=== PATIENT | female | born 1925 | race Caucasian/White ===

== ENCOUNTER → 2016-12-13 | Outpatient (CLI) | payer MEDICARE, BC ==
[~2016-12-13] MED LIST: ACIPHEX 20 MG T20 MG OR; ASPIRIN 81MG TA81 MG PO; ATENOLOL25 M1 PO; ATENOLOL25 MG PO; CHEWABLE ASPIRI81 MG PO; CHLORDIAZEPOXID10 M1 PO; ENALAPRIL5 MG PO; KCL 10% 2020 MEQ/15 PO; LIBRIUM 10MG. C10 MG PO; OMEGA 31000 MG PO; PREMARIN 0.3MG0.3 MG PO; PREMARIN0.3 MG PO; VASOTEC2.5 MG PO; VIT B-6100 MG PO; VITAMIN C PURE500 MG PO; VITAMIN D3400 IU PO; VITAMIN E200 I1 PO
[2016-12-13 18:54] LABS: BUN 13 mg/dL (7-18)
[2016-12-13 18:55] LABS: GFR (ESTIMATED) 59 ML/MIN (59-)
== END ==
LOC: LAB 16:19
PROVIDERS: Internal Medicine
DX: E11.51 Type 2 diabetes mellitus with diabetic peripheral angiopathy without gangrene (principal); I48.0 Paroxysmal atrial fibrillation; I69.320 Aphasia following cerebral infarction; I25.10 Atherosclerotic heart disease of native coronary artery without angina pectoris; I10 Essential (primary) hypertension; M15.0 Primary generalized (osteo)arthritis

== ENCOUNTER 2016-12-28 10:54 | Observation (INO) | payer MEDICARE, BC ==
[~2016-12-28] VITALS: Ht 165.1 cm; Wt 68.5 kg
[2016-12-28 11:05] VITALS: BP 131/66
--- OUTSIDE RECORDS SUMMARY | 2016-12-28 11:06 | External Medical Summary Rpt ---
Author Author [employer], ALINAM[employer]HELL [employer] Organization [employer] Address Unknown Phone Unavailable Results INR in Blood by Coagulation assay Observa Value Referen Units Interpr Notes Date tion ce etation Range INR in 0.9 - 1.1 No High INDICATIO December 26 Blood by informati N 2017 Coagulati on in on assay source INR data RANGETHER APY FOR DVT, PE, ATRIAL FIB; 2.0 - 3.0PROPHY LAXIS FOR VTETHERAP Y FOR MECHANICA L HEART 2.5 - 3.5VALVE; PREVENTIO N OF SYSTEMICE MBOLISM SECONDARY TO AMI Prothromb 9.4 - SECONDS High No December 26 in time 11.8 inform2016 (PT) in on in Platelet source poor data plasma by Coagulati on assay CBC W Auto Differential panel in Blood Observa Value Referen Units Interpr Notes Date tion ce etation Range Basophils 0 - 0.2 K/MM3 Normal No December 262016 [#/volume on in ] in source Blood by data Automated count Basophils 0.1 - 2.0 % Normal No December 26 / inform2016 leukocyte on in s in source Blood by data Automated count Eosinophi 0.0 - 0.4 K/mm3 Normal No December 26 ls inform2016 [#/volume on in ] in source Blood by data Automated count Eosinophi 0.1 - % Normal No December 26 ls/100 12.0 informati 2016 leukocyte on in s in source Blood by data Automated count Granulocy 1.8 - 7.8 K/mm3 Normal No December 26 kulwinder informati 2016 [#/volume on in ] in source Blood by data Automated count Granulocy 37.0 - % Normal No December 26 kulwinder/100 80.0 informati 2016 leukocyte on in s in source Blood by data Automated count Hematocri 37.0 - % Normal No December 26 t [Volume 47.0 informati 2016 on in Fraction] source of Blood data Hemoglobi 12.2 - g/dL No No December 26 n 16.2 informati informati 2016 [Mass/vol on in on in ume] in source source Blood data data Lymphocyt 0.7 - 4.5 K/mm3 Normal No December 26 es inform2016 [#/volume on in ] in source Unspecifi data ed specimen by Automated count Lymphocyt 10 - 50.0 % Normal No December 26 es inform2016 [#/volume on in ] in source Unspecifi data ed specimen by Automated count Erythrocy 27 - 31.2 pg Normal No December 26 te mean 2016 corpuscul on in ar source hemoglobi data n [Entitic mass] Erythrocy 31.8 - g/dl Normal No December 26 te mean 35.4 2016 corpuscul on in ar source hemoglobi data n concentra tion [Mass/vol ume] by Automated count Erythrocy 82.2 - fl Normal No December 26 te mean 97.8 2016 corpuscul on in ar volume source [Entitic data volume] by Automated count Monocytes 0.1 - 1.0 K/mm3 Normal No December 262016 [#/volume on in ] in source Blood by data Automated count Monocytes 1.7 - 9.3 % Normal No December 26 /100 2016 leukocyte on in s in source Blood by data Automated count Platelet 7.4 - fl Low No December 26 mean 10.4 2016 volume on in [Entitic source volume] data in Blood by Automated count Platelets 142 - 424 K/mm3 Normal No December 262016 [#/volume on in ] in source Blood data Erythrocy 4.2 - 5.4 M/mm3 Normal No December 26 kulwinder 2016 [#/volume on in ] in source Amniotic data fluid Erythrocy 11.5 - % Normal No December 26 te 17.5 2016 distribut on in ion width source [Entitic data volume] by Automated count Leukocyte 4.8 - K/MM3 Normal No December 26 s 10.8 informati 2016 [#/volume on in ] in source Blood data INR in Blood by Coagulation assay Observa Value Referen Units Interpr Notes Date tion ce etation Range INR in 0.9 - 1.1 No High INDICATIO December 19 Blood by informati N 2017 Coagulati on in 10:28 AM on assay source INR data RANGETHER APY FOR DVT, PE, ATRIAL FIB; 2.0 - 3.0PROPHY LAXIS FOR VTETHERAP Y FOR MECHANICA L HEART 2.5 - 3.5VALVE; PREVENTIO N OF SYSTEMICE MBOLISM SECONDARY TO AMI Prothromb 9.4 - SECONDS High No December 19 in time 11.8 informati 2016 (PT) in on in 10:28 AM Platelet source poor data plasma by Coagulati on assay Comprehensive metabolic 2000 panel in Serum or Plasma Observa Value Referen Units Interpr Notes Date tion ce etation Range Albumin/G 1.1 - 1.8 No Normal No December 13 lobulin informati informati 2016 4:00 [Mass on in on in PM ratio] in source source Serum or data data Plasma Albumin 3.4 - 5.0 gm/dL Normal No December 13 [Mass/vol informati 2016 4:00 ume] in on in PM Serum or source Plasma data Alkaline 46 - 116 U/L Normal No December 13 phosphata informati 2016 4:00 se on in PM [Enzymati source c data activity/ volume] in Serum or Plasma Bilirubin 0.2 - 1.0 mg/dL Normal No December 13 .total informati 2016 4:00 [Mass/vol on in PM ume] in source Serum or data Plasma Urea 7 - 18 mg/dL Normal No December 13 nitrogen informati 2016 4:00 [Mass/vol on in PM ume] in source Serum or data Plasma Calcium 8.5 - mg/dL Normal No December 13 [Mass/vol 10.1 informati 2016 4:00 ume] in on in PM Serum or source Plasma data Chloride 98 - 107 mmoL/L Normal No December 13 [Moles/vo informati 2016 4:00 lume] in on in PM Serum or source Plasma data Carbon 21.0 - mmoL/L Normal No December 13 dioxide, 32.0 informati 2016 4:00 total on in PM [Moles/vo source lume] in data Serum or Plasma Creatinin 0.55 - mg/dL Normal No December 13 e 1.02 informati 2016 4:00 [Mass/vol on in PM ume] in source Serum or data Plasma Estimated 59- ML/MIN No REFERENCE December 13 informati RANGE: 2017 4:00 glomerula on in >60 PM r source ML/MIN/1. filtratio data 73 SQUARE n rate METERSIf (GF this patient is -A merican, then multiply theresult by 1.210. Globulin 1.3 - 3.2 gm/dL High No December 13 [Mass/vol informati 2016 4:00 ume] in on in PM Serum source data Glucose 74 - 106 mg/dL Normal No December 13 [Mass/vol informati 2016 4:00 ume] in on in PM Serum or source Plasma data Potassium 3.5 - 5.1 mmoL/L Normal No December 132016 4:00 [Moles/vo on in PM lume] in source Serum or data Plasma Sodium 136 - 145 mmoL/L Low No December 13 [Moles/vo informati 2016 4:00 lume] in on in PM Serum or source Plasma data Aspartate 15 - 37 U/L Normal No December 132016 4:00 aminotran on in PM sferase source [Enzymati data c activity/ volume] in Serum or Plasma Alanine 12 - 78 U/L Normal No December 13 aminotran 2016 4:00 sferase on in PM [Enzymati source c data activity/ volume] in Serum or Plasma Protein 6.4 - 8.2 gm/dL Normal No December 13 [Mass/vol informati 2016 4:00 ume] in on in PM Serum or source Plasma data Lipid 1996 panel in Serum or Plasma Observa Value Referen Units Interpr Notes Date tion ce etation Range Cholester < 200 mg/dL No No December 13 ol informati informati 2016 4:00 [Moles/vo on in on in PM lume] in source source Unspecifi data data ed specimen Cholester 40 - 60 MG/DL Normal No December 13 ol in HDL informati 2016 4:00 on in PM [Mass/vol source ume] in data Serum or Plasma Cholester 0 - 130 mg/dL Normal No December 13 ol in LDL 2016 4:00 on in PM [Mass/vol source ume] in data Serum or Plasma by calculati on Triglycer 30 - 200 mg/dL Normal No December 13 gladys ati 2016 4:00 [Moles/vo on in PM lume] in source Serum or data Plasma Cholester 0 - 40 No Normal No December 13 ol in informati informati 2016 4:00 VLDL on in on in PM [Mass/vol source source ume] in data data Serum or Plasma Hemoglobin A1c in Blood Observa Value Referen Units Interpr Notes Date tion ce etation Range Hemoglo 5.5 0.0 - % Normal < 6% December 13 bin A1c 7.0 NON-AUSTIN 2017 in BETIC 4:00 PM Blood LEVEL< 7% CONTROL LED DIABETI C LEVEL> 8% POORLY CONTROL LED DIABETI C LEVEL INR in Blood by Coagulation assay Observa Value Referen Units Interpr Notes Date tion ce etation Range INR in 0.9 - 1.1 No High December 13 Blood by informati NOTIFICAT 2016 4:00 Coagulati on in ION PM on assay source RESULT data Martha neINDICAT ION INR RANGETHER APY FOR DVT, PE, ATRIAL FIB; 2.0 - 3.0PROPHY LAXIS FOR VTETHERAP Y FOR MECHANICA L HEART 2.5 - 3.5VALVE; PREVENTIO N OF SYSTEMICE MBOLISM SECONDARY TO AMI Prothromb 9.4 - SECONDS High December 13 in time 11.8 NOTIFICAT 2016 4:00 (PT) in ION PM Platelet RESULT poor Martha plasma by rosalind Coagulshira on assay
--- OUTSIDE RECORDS SUMMARY | 2016-12-28 11:06 | External Medical Summary Rpt ---
Author Author [employer] Organization [employer] Address Unknown Phone Unavailable Purpose Continuity of Care Document - through 2016
--- OUTSIDE RECORDS SUMMARY | 2016-12-28 11:06 | External Medical Summary Rpt ---
Demographics Preferred Language Maori Marital Status Unknown Congregation Affiliation Unknown Race Unknown Ethnic Group Unknown Author Author , Organization [employer] Address Unknown Phone Unavailable Purpose Continuity of Care Document - through 2016 Immunization No patient found.
--- OUTSIDE RECORDS SUMMARY | 2016-12-28 11:06 | External Medical Summary Rpt ---
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
--- OUTSIDE RECORDS SUMMARY | 2016-12-28 11:06 | External Medical Summary Rpt ---
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
--- OUTSIDE RECORDS SUMMARY | 2016-12-28 11:06 | External Medical Summary Rpt ---
Author Author [employer], ALINAMITCHELL Production Organization [employer] Address [...]
--- OUTSIDE RECORDS SUMMARY | 2016-12-28 11:06 | External Medical Summary Rpt ---
Demographics Preferred Language Bengali Marital Status Unknown Presybeterian Affiliation Unknown Race Unknown Ethnic Group Unknown Author Author , Organization [employer] Address Unknown Phone Unavailable Purpose Continuity of Care Document - through 2016 Immunization No patient found.
[2016-12-28 11:33] LABS: URINE BILIRUBIN - DIPSTICK NEGATIVE (NEG); URINE BLOOD 1+ (NEG)
[2016-12-28] MEDS ORDERED: WARFARIN SODIUM3 MG PO (12:02)
--- NOTE | 2016-12-28 12:02 | Emergency Room Report ---
History of Present Illness Time Seen by 1104 Presenting Problem in Triage Pt arrived:Wheelchair Presenting Problem:PT REPORTS LOWER BACK PAIN X1 WEEK. PT REPORTS HAS BEEN SEEN BY PCP HAD BLOOD WORK AND XRAYS. NO KNOWN INJURY. 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 N Clinical Suspician of Infection? N Mental Status: 1 - Regular (Normal Baseline) Sepsis Risk:Low Sepsis Risk Have you (or family members/close friends) recently traveled outside the [place]? N If Yes, where/when: Have you had exposure to infectious disease within the past month? N TB? Other? Specify: Comment History obtained primarily from the patient's nephew. She lives alone but he checks on her frequently. He says she has been declining for about a week and a half. She is generally weak and also complains of back pain. Today she also complains that she hurts all over. He says that he could barely get her up to walk today because of general weakness. Eventually she was able to get up and walk with a walker but it was quite difficult to get her into the car to bring her here. Nephew says urine smells bad. She saw her primary care physician for her back pain and 2 days ago had x-rays and a complete blood count and a ProTime. X-ray showed degenerative changes of the lumbar spine with grade 1 anterolisthesis of L4 on L5. Facet arthritic change. Concave deformity of the inferior endplate of L2 consistent with mild compressive changes age indeterminate. Old wedge compression changes of T12. She denies fever, cough, chest pain, shortness of breath, urinary symptoms, vomiting. She has had constipation. She has been eating and drinking. ALLERGIES Coded Allergies: Cephalosporins (12/28/16) Penicillins (12/28/16) Sulfa (Sulfonamide Antibiotics) (12/28/16) aspirin (12/28/16) cefaclor (12/28/16) clindamycin (12/28/16) metronidazole (12/28/16) Home Medications Reported Medications Enalapril Maleate 5 MG PO BID Atenolol 25 MG PO BID Warfarin Sodium (Warfarin 3MG) 3 MG PO DAILY #60 Simvastatin 10 MG PO DAILY #30 RANITIDINE HCL (Ranitidine HCl) 150 MG PO DAILY #30 History Medical History General CAD? No Angina: Yes TN: Yes Hypertension? Yes Hyperlipidemia? Yes CHF? No COPD? No Asthma? No Hernia? Yes Thyroid Problems? No Hypothyroidism? No CVA? Yes Seizures? No Diabetes? Yes Insulin Dependent: No Insulin Pump: No Home FSBS? No UTI? Yes Stones? No GB Disease: Yes Hepatitis? No Cataracts? No Glaucoma? No MRSA? No TB? No Anxiety? Yes Cancer? No More? No Immunization Hx DT/Tetanus 5-10 YRS Flu LAST YEAR Pneumonia > 10 YRS Surgical Hx Previous Surgery?Y GALLBLADDER STOMACH TUMORS REMOVAL KIDNEY TUBE OPENINGS FINGER SURGERY D & C BREAST LUMP REMOVAL RIGHT KNEE MENISCUS HYSTERECTOMY BLADDER SURGERY Family History Family Hx Diabetes Yes CAD Yes Hypertension Yes Hyperlipidemia Yes Cancer Yes TB No Social History Smoking Hx Smoker: Never Smoker Tobacco: No Alcohol Alcohol: No Review of Systems All Other Systems Reviewed and Negative Constitutional denies fever, weakness Respiratory denies cough, denies shortness of breath Cardiovascular denies chest pain Gastrointestinal denies abdominal pain, constipation, denies diarrhea, denies nausea, denies vomiting Genitourinary see HPI. Musculoskeletal back pain Physical Exam Vital Signs Vital Signs Date Time Temp Pulse Resp B/P Pulse O2 O2 Flow FiO2 Ox Delivery Rate 12/28 1307 69 20 129/67 96 12/28 1105 97.0 62 20 131/66 98 General Appearance no apparent distress, elderly and frail, sitting in wheelchair Eye Exam - bilateral eye normal exam, bilateral eye PERRL, bilateral eye EOMI Ear, Nose, Throat hearing grossly normal, normal ENT inspection Neck normal inspection, non-tender, supple, full range of motion Respiratory Status Yes: trachea midline, chest symmetrical, non tender chest. No: respiratory distress. Lung Sounds bilateral: normal breath sounds, lungs clear. Cardiovascular normal exam, regular rate/rhythm, no peripheral edema, no gallop, no JVD, no murmur, no rub, normal peripheral pulses Peripheral Pulses Pulses normal Yes Gastrointestinal normal bowel sounds, normal exam, non tender, soft, no organomegaly Back thoracic kyphosis. Tender lumbar spine, mild. 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 No Results/Orders Laboratory Tests 12/28/16 1250: Sodium 130 L, Potassium 3.8, Chloride 95 L, Carbon Dioxide 29, BUN 15, Creatinine 0.8, Estimated Creat Clear 52, Estimated GFR (MDRD) 68, Glucose 110 H, Calcium 9.5, Total Bilirubin 0.6, AST 23, ALT 25, Alkaline Phosphatase 89, Creatine Kinase 157, CK-MB (CK-2) Rel Index 1.1, CK and CKMB Interp 1.8, Troponin I < 0.02, Total Protein 8.0, Albumin 3.9, Globulin 4.1 H, Albumin/ Globulin Ratio 1.0 L, WBC 7.8, RBC 4.64, Hgb 13.5, Hct 41.2, MCV 88.7, RDW 12.6 , Plt Count 325, MPV 6.1 L, Gran % 56.2, Gran # 4.4, Lymphocytes % 36.2, Monocytes % 7.1, Eosinophils % 0.4, Basophils % 0.2, Lymphocytes # 2.8, Monocytes # 0.6, Eosinophils # 0.0, Basophils # 0.0, PUBS MCHC 32.8, MCH 29.1 12/28/16 1130: Urine Color YELLOW, Urine Appearance CLOUDY, Urine pH 8.0, Ur Specific [place] 1.010, Urine Protein TRACE H, Urine Ketones NEGATIVE, Urine Blood 1+ H, Urine Nitrate NEGATIVE, Urine Bilirubin NEGATIVE, Urine Urobilinogen 0.2, Ur Leukocyte Esterase 1+ H, Urine RBC 3-5, Urine WBC 5-10, Ur Squamous Epith Cells 3-5, Amorphous Sediment 1+, Urine Bacteria 4+, Hyaline Casts 3-5, Urine Glucose NEGATIVE Current Medication Orders Sig/Sourav Start time Last Medication Dose Route Stop Time Status Admin Levofloxacin/Dextrose 100 ML ONCE ONE 12/28 1415 r IV 12/28 1514 Sodium Chloride 10 ML PRN PRN 12/28 1215 AC IV 12/29 1215 Orders Procedure Date/time Status Decision to admit 12/28 1414 Active ELECTROCARDIOGRAM REQUEST 12/28 1216 Active IV SALINE LOCK 12/28 121 Active CBC WITH AUTO DIFF 12/28 1216 Complete CARDIAC ENZYMES 12/28 1216 Complete CHEM 12 PROFILE 12/28 1216 Complete CULTURE, URINE 12/28 1130 Active URINALYSIS/COMPLETE 12/28 1112 Complete 12 LEAD EKG-PHIL (INITIAL) 12/28 UNK Active CM/EKG CM/EKG Comments EKG interpreted by Allen Jalloh MD: Rhythm: sinus Rate: 63 [place]: normal Ectopy: none Conduction: normal ST Segment Changes: none T Wave Changes: none Q Waves: none No evidence of acute ischemia or injury Baseline artifact present, but I consider the EKG adequate for accurate interpretation. Low-voltage QRS XRAY/CT/US XRAY/CT/US XRAY chest Comment X-ray interpreted by radiologist: No change with no acute finding Progress - 2:10 PM: I have discussed the case with Annika for Dr. Clark who agrees to admit the patient to the hospital. We discussed the patient's clinical information, including history, exam, laboratory and radiology results and ED course. Per hospital procedure, I will write temporary bridge inpatient orders on the patient. Specific orders requested by the admitting physician: Levaquin Departure Departure Disposition Still a Patient Clinical Impression Primary Impression: Generalized weakness Secondary Impressions: Lumbar compression fracture Qualifiers: Encounter type: initial encounter Fracture type: closed Qualified Code: S32.000A - Wedge compression fracture of unspecified lumbar vertebra, initial encounter for closed fracture Urinary tract infection Qualifiers: Urinary tract infection type: site unspecified Hematuria presence: with hematuria Qualified Code: N39.0 - Urinary tract infection, site not specified Condition STABLE Referrals Jesus DURAN,Paulino Hurtado (Family) ED Critical Care Critical Care No at [id number]
[2016-12-28] MEDS ORDERED: SIMVASTATIN10 MG PO (12:03)
[2016-12-28] MEDS ORDERED: RANITIDINE 150150 MG PO (12:03)
[2016-12-28 13:04] LABS: HEMOGLOBIN 13.5 g/dL (12.2-16.2); LYMPH # 2.8 K/mm3 (0.7-4.5); LYMPH % 36.2 % (10-50.0)
--- NOTE | 2016-12-28 13:07 | RADIOLOGY REPORT PS360 ---
CHEST-PORTABLE HISTORY: weak ORDERING PHYSICIAN: Allen Jalloh MD PATIENT AGE: 89 years COMPARISON: 12/20/2011 FINDINGS: The cardiomediastinal silhouette and pulmonary vascularity are within normal limits. The lungs are clear without infiltrates, suspicious nodules, or pleural effusions. No acute bony abnormalities. IMPRESSION: No change with no acute finding
[2016-12-28 13:23] LABS: BUN 15 mg/dL (7-18)
[2016-12-28 13:34] LABS: GFR (ESTIMATED) 68 ML/MIN (59-)
--- OUTSIDE RECORDS SUMMARY | 2016-12-28 14:21 | External Medical Summary Rpt ---
Demographics Preferred Language Hebrew Marital Status Unknown Orthodox Affiliation Unknown Race Unknown Ethnic Group Unknown Author Author , Organization [employer] Address Unknown Phone Unavailable Purpose Continuity of Care Document - through 2016 Immunization No patient found.
--- OUTSIDE RECORDS SUMMARY | 2016-12-28 14:21 | External Medical Summary Rpt ---
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 NTS Results Labs Lab Lab Date Result Refere Interp Status Commen Order Detail nces retati t Range on Urinalysis dipstick W Reflex Microscopic panel in Urine (12-28-2016 11:30) Amorpho 1+ NONE complet us 017 ed sedimen 11:30 t [Presen ce] in Urine sedimen t by Light microsc opy Bacteri 4+ O complet a 017 ed [Presen 11:30 ce] in Urine sedimen t by Light microsc opy Hyaline 3-5 NONE complet casts 017 ed [Presen 11:30 ce] in Urine sedimen t by Light microsc opy Erythro 3-5 0 complet cytes 017 ed [Presen 11:30 ce] in Urine sedimen t by Light microsc opy Epithel 3-5 0#/hp complet ial 017 f - ed cells.s 11:30 5#/hp quamous f [Presen ce] in Urine sedimen t by Microsc opy high power field Leukocy 5-10 O complet kulwinder 017 wbc/hpf ed [#/volu 11:30 me] in Urine Urinalysis dipstick W Reflex Microscopic panel in Urine (12-28-2016 11:30) Appeara CLOUDY CLEAR complet nce of 017 ed Urine 11:30 Bilirub NEGATIV NEG complet in 017 E ed [Presen 11:30 ce] in Urine by Test strip Erythro 1+ NEG Abnorma complet cytes 017 l ed [Presen 11:30 ce] in Urine Color YELLOW YELLOW complet of 017 ed Urine 11:30 Ketones NEGATIV NEG complet 017 E ed [Presen 11:30 ce] in Urine by Automat ed test strip Mucus 1+ NEG Abnorma complet [Presen 017 l ed ce] in 11:30 Urine sedimen t by Light microsc opy Nitrite NEGATIV NEG complet 017 E ed [Presen 11:30 ce] in Urine by Test strip Urobili 0.2 NEG complet nogen 017 ed [Presen 11:30 ce] in Urine by Test strip Hemoglobin A1c in Blood (12-13-2016 16:00) Hemoglo 5.5 % 0.0% Normal complet bin A1c 017 - ed in 16:00 7.0% Blood
--- OUTSIDE RECORDS SUMMARY | 2016-12-28 14:21 | External Medical Summary Rpt ---
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
--- OUTSIDE RECORDS SUMMARY | 2016-12-28 14:21 | External Medical Summary Rpt ---
Demographics Preferred Language Tamazight Marital Status Unknown Holiness Affiliation Unknown Race Unknown Ethnic Group Unknown Author Author , Organization [employer] Address Unknown Phone Unavailable Purpose Continuity of Care Document - through 2016 Immunization No patient found.
--- OUTSIDE RECORDS SUMMARY | 2016-12-28 14:22 | External Medical Summary Rpt ---
Author Author [employer], [employer] Organization [employer] Address Unknown Phone Unavailable Results CBC W Auto Differential panel in Blood Observa Value Referen Units Interpr Notes Date tion ce etation Range Basophils 0 - 0.2 K/MM3 Normal No Dec 28 informati 2016 [#/volume on in 12:50 PM ] in source Blood by data Automated count Basophils 0.1 - 2.0 % Normal No Dec 28 / informati 2016 leukocyte on in 12:50 PM s in source Blood by data Automated count Eosinophi 0.0 - 0.4 K/mm3 Normal No Dec 28 ls informati 2016 [#/volume on in 12:50 PM ] in source Blood by data Automated count Eosinophi 0.1 - % Normal No Dec 28 ls/100 12.0 inform2016 leukocyte on in 12:50 PM s in source Blood by data Automated count Granulocy 1.8 - 7.8 K/mm3 Normal No Dec 28 kulwinder informati 2016 [#/volume on in 12:50 PM ] in source Blood by data Automated count Granulocy 37.0 - % Normal No Dec 28 kulwinder/100 80.0 inform2016 leukocyte on in 12:50 PM s in source Blood by data Automated count Hematocri 37.0 - % Normal No Dec 28 t [Volume 47.0 informati 2016 on in 12:50 PM Fraction] source of Blood data Hemoglobi 12.2 - g/dL Normal No Dec 28 n 16.2 informati 2016 [Mass/vol on in 12:50 PM ume] in source Blood data Lymphocyt 0.7 - 4.5 K/mm3 Normal No Dec 28 es informati 2016 [#/volume on in 12:50 PM ] in source Unspecifi data ed specimen by Automated count Lymphocyt 10 - 50.0 % Normal No Dec 28 es informati 2016 [#/volume on in 12:50 PM ] in source Unspecifi data ed specimen by Automated count Erythrocy 27 - 31.2 pg Normal No Dec 28 te mean informati 2017 corpuscul on in 12:50 PM ar source hemoglobi data n [Entitic mass] Erythrocy 31.8 - g/dl Normal No Dec 28 te mean 35.4 inform2016 corpuscul on in 12:50 PM ar source hemoglobi data n concentra tion [Mass/vol ume] by Automated count Erythrocy 82.2 - fl Normal No Dec 28 te mean 97.8 inform2016 corpuscul on in 12:50 PM ar volume source [Entitic data volume] by Automated count Monocytes 0.1 - 1.0 K/mm3 Normal No Dec 28 inform2016 [#/volume on in 12:50 PM ] in source Blood by data Automated count Monocytes 1.7 - 9.3 % Normal No Dec 28 /100 inform2016 leukocyte on in 12:50 PM s in source Blood by data Automated count Platelet 7.4 - fl Low No Dec 28 mean 10.4 inform2016 volume on in 12:50 PM [Entitic source volume] data in Blood by Automated count Platelets 142 - 424 K/mm3 Normal No Dec 28 informati 2016 [#/volume on in 12:50 PM ] in source Blood data Erythrocy 4.2 - 5.4 M/mm3 Normal No Dec 28 kulwinder inform2016 [#/volume on in 12:50 PM ] in source Amniotic data fluid Erythrocy 11.5 - % Normal No Dec 28 te 17.5 inform2016 distribut on in 12:50 PM ion width source [Entitic data volume] by Automated count Leukocyte 4.8 - K/MM3 Normal No Dec 28 s 10.8 inform2016 [#/volume on in 12:50 PM ] in source Blood data Urinalysis dipstick W Reflex Microscopic panel in Urine Observa Value Referen Units Interpr Notes Date tion ce etation Range Appeara CLOUDY CLEAR No No No Dec 28 nce of informa informa informa 2017 Urine tion in tion in tion in 11:30 source source source AM data data data Amorpho 1+ NONE No No No Dec 28 us informa informa informa 2017 sedimen tion in tion in tion in 11:30 t source source source AM [Presen data data data ce] in Urine sedimen t by Light microsc opy Bacteri 4+ O No No No Dec 28 a informa informa informa 2017 [Presen tion in tion in tion in 11:30 ce] in source source source AM Urine data data data sedimen t by Light microsc opy Bilirub NEGATIV NEG No No No Trell 1 in E informa informa informa 2017 [Presen tion in tion in tion in 11:30 ce] in source source source AM Urine data data data by Test strip Erythro 1+ NEG No Abnorma No Trell 1 cytes informa l informa 2017 [Presen tion in tion in 11:30 ce] in source source AM Urine data data Color YELLOW YELLOW No No No Trell 1 of informa informa informa 2017 Urine tion in tion in tion in 11:30 source source source AM data data data Glucose NEG No No No Trell 1 [Mass/vol informati informati informati 2017 ume] in on in on in on in 11:30 AM Urine by source source source Test data data data strip Hyaline 3-5 NONE #/lpf No No Trell 1 casts informa informa 2017 [Presen tion in tion in 11:30 ce] in source source AM Urine data data sedimen t by Light microsc opy Ketones NEGATIV NEG mg/dL No No Trell 1 E informa informa 2017 [Presen tion in tion in 11:30 ce] in source source AM Urine data data by Automat ed test strip Mucus 1+ NEG No Abnorma No Trell 1 [Presen informa l informa 2016 ce] in tion in tion in 11:30 Urine source source AM sedimen data data t by Light microsc opy Nitrite NEGATIV NEG No No No Trell 1 E informa informa informa 2017 [Presen tion in tion in tion in 11:30 ce] in source source source AM Urine data data data by Test strip pH of 5.0 - 8.5 No Normal No Trell 1 Urine informati informati 2017 on in on in 11:30 AM source source data data Protein NEG mg/dL High No Trell 1 [Mass/vol informati 2017 ume] in on in 11:30 AM Urine by source Automated data test strip Erythro 3-5 0 rbc/hpf No No Trell 1 cytes informa informa 2017 [Presen tion in tion in 11:30 ce] in source source AM Urine data data sedimen t by Light microsc opy Specific 1.005 - No Normal No Dec 28 gravity 1.030 informati informati 2017 of Urine on in on in 11:30 AM source source data data Epithel 3-5 0 - 5 #/hpf No No Dec 28 ial informa informa 2017 cells.s tion in tion in 11:30 quamous source source AM data data [Presen ce] in Urine sedimen t by Microsc opy high power field Urobili 0.2 NEG E.U./dL No No Dec 28 nogen informa informa 2017 [Presen tion in tion in 11:30 ce] in source source AM Urine data data by Test strip Leukocy [5 O wbc/hpf No No Dec 28 kulwinder wbc/hpf informa informa 2017 [#/volu ; 10 tion in tion in 11:30 me] in wbc/hpf source source AM Urine ] data data Urinalysis dipstick W Reflex Microscopic panel in Urine Observa Value Referen Units Interpr Notes Date tion ce etation Range Appeara CLOUDY CLEAR No No No Dec 28 nce of informa informa informa 2017 Urine tion in tion in tion in 11:30 source source source AM data data data Bilirub NEGATIV NEG No No No Dec 28 in E informa informa informa 2016 [Presen tion in tion in tion in 11:30 ce] in source source source AM Urine data data data by Test strip Erythro 1+ NEG No Abnorma No Dec 28 cytes informa l informa 2016 [Presen tion in tion in 11:30 ce] in source source AM Urine data data Color YELLOW YELLOW No No No Dec 28 of informa informa informa 2017 Urine tion in tion in tion in 11:30 source source source AM data data data Glucose NEG No No No Dec 28 [Mass/vol informati informati informati 2017 ume] in on in on in on in 11:30 AM Urine by source source source Test data data data strip Ketones NEGATIV NEG mg/dL No No Dec 28 E informa informa 2017 [Presen tion in tion in 11:30 ce] in source source AM Urine data data by Automat ed test strip Mucus 1+ NEG No Abnorma No Dec 28 [Presen informa l informa 2016 ce] in tion in tion in 11:30 Urine source source AM sedimen data data t by Light microsc opy Nitrite NEGATIV NEG No No No Dec 28 E informa informa informa 2016 [Presen tion in tion in tion in 11:30 ce] in source source source AM Urine data data data by Test strip pH of 5.0 - 8.5 No Normal No Dec 28 Urine informati informati 2017 on in on in 11:30 AM source source data data Protein NEG mg/dL High No Dec 28 [Mass/vol inform2016 ume] in on in 11:30 AM Urine by source Automated data test strip Specific 1.005 - No Normal No Dec 28 gravity 1.030 informati informati 2016 of Urine on in on in 11:30 AM source source data data Urobili 0.2 NEG E.U./dL No No Dec 28 nogen informa informa 2016 [Presen tion in tion in 11:30 ce] in source source AM Urine data data by Test strip INR in Blood by Coagulation assay Observa Value Referen Units Interpr Notes Date etation Range INR in 0.9 - 1.1 [...] Observa Value Referen Units Interpr Notes Date ti ce etation Range Basophils 0 - 0.2 K/MM3 Normal No December 26 inform2016 [#/volume on in ] in source Blood by data Automated count Basophils 0.1 - 2.0 % Normal No December 26 /100 informati 2016 leukocyte on in s in source Blood by data Automated count Eosinophi 0.0 - 0.4 K/mm3 Normal No December 26 ls informati 2016 [#/volume on in ] in source Blood by data Automated count Eosinophi 0.1 - % Normal No December 26 ls/100 12.0 informati 2016 leukocyte on in s in source Blood by data Automated count Granulocy 1.8 - 7.8 K/mm3 Normal No December 26 kulwinder inform2016 [#/volume on in ] in source Blood by data Automated count Granulocy 37.0 - % Normal No December 26 kulwinder/100 80.0 inform2016 leukocyte on in s in source [...] 4.5 K/mm3 Normal No December 26 es informati 2016 [#/volume on in ] in source Unspecifi [...] Normal No December 26 te mean 35.4 inform2016 corpuscul on in ar source hemoglobi data n concentra tion [Mass/vol ume] by Automated count Erythrocy 82.2 - fl Normal No December 26 te mean 97.8 inform2016 corpuscul on in ar volume source [Entitic data volume] by Automated count Monocytes 0.1 - 1.0 K/mm3 Normal No December 262016 [#/volume on in ] in source Blood by data Automated count Monocytes 1.7 - 9.3 % Normal No December 26 / informati 2016 leukocyte on in s in source Blood by data Automated count Platelet 7.4 - fl Low No December 26 mean 10.4 informati 2016 volume on in [Entitic source volume] data in Blood by Automated count Platelets 142 - 424 K/mm3 Normal No December 26 inform2016 [#/volume on in ] in source Blood data Erythrocy 4.2 - 5.4 M/mm3 Normal No December 26 kulwinder informati 2016 [#/volume on in ] in source Amniotic data fluid Erythrocy 11.5 - % Normal No December 26 te 17.5 informati 2016 distribut on in ion width source [...] Normal No December 13 ol in LDL informati 2016 4:00 on in PM [Mass/vol source ume] in data Serum or Plasma by calculati on Triglycer 30 - 200 mg/dL Normal No December 13 gladys informati 2016 4:00 [Moles/vo on in PM lume] [...] PM on assay source RESULT data Martha boyerINDICAT ION INR RANGETHER APY FOR DVT, PE, ATRIAL FIB; 2.0 - 3.0PROPHY LAXIS FOR VTETHERAP Y FOR MECHANICA L HEART 2.5 - 3.5VALVE; PREVENTIO N OF SYSTEMICE MBOLISM SECONDARY TO AMI Prothromb 9.4 - SECONDS High December 13 in time 11.8 NOTIFICAT 2017 4:00 (PT) in ION PM Platelet RESULT poor Martha plasma by rosalind Aviles on assay
[2016-12-28 15:23] VITALS: BP 133/63
[2016-12-28 15:35] VITALS: BP 133/63
[2016-12-28] MEDS ORDERED: TYLENOL ES500 MG PO (16:17)
--- NOTE | 2016-12-28 16:39 | HISTORY AND PHYSICAL REPORT ---
Demographics: Admit date: 12/28/16 Chief complaint: weakness, back pain PRIMARY DIAGNOSIS: Generalized weakness, UTI Allergies: Coded Allergies: Cephalosporins (12/28/16) Penicillins (12/28/16) Sulfa (Sulfonamide Antibiotics) (12/28/16) aspirin (12/28/16) cefaclor (12/28/16) clindamycin (12/28/16) metronidazole (12/28/16) History of present illness: History of present illness: 89 year old white female with a history of CVA for which she takes Coumadin and CAD presented to the ED with weakness and back pain. Patient reports increase in chronic back pain over the last 2-3 weeks. She was unable to get from chair to standing position. She lives alone with assistance of her grandson who checks on her frequently. Grandson reports malodorous urine. Patient denies dysuria, hematuria or frequency. No fevers. No cough, congestion or other ENT symptoms. No recent falls or injuries. Outpatient x-rays of LS from 12/26 shows old compression fracture T12 with concave deformity of inferior endplate of L2 c /w mild compression, age indeterminate. INR at that time was 3.5. In the ED, UA was positive for leuk estrace and blood, color cloudy. CBC, CMP and cardiac enzymes were unremarkable. Patient admitted to acute care for further evaluation and likely need for LTC placement. Patient's son lives in [place] and plans to come into town tomorrow to further discuss need for LTC. Past medical history: Family HX Diabetes Yes CAD Yes Hypertension Yes Hyperlipidemia Yes Cancer Yes TB No Immunization HX DT/Tetanus 5-10 YRS Flu LAST YEAR Pneumonia > 10 YRS TB Test in last year No General CAD? No Angina: Yes [place]: Yes Hypertension? Yes Hyperlipidemia? Yes CHF? No DVT? No PE? No COPD? No Asthma? No Anemia? No GERD? No Gastric ulcers? No GI Bleed? No Hernia? Yes Thyroid Problems? No Hypothyroidism? No CVA? Yes Seizures? No Diabetes? Yes Insulin Dependent: No Insulin Pump: No Home FSBS? No Renal Insuffiency? No UTI? Yes Stones? No GB Disease: Yes Nephritic Syndrome? No Asplenia? No Hepatitis? No Sickle Cell Disease? No Arthritis? Yes Migraines? No Cataracts? No Glaucoma? No MRSA? No HIV? No TB? No Anxiety? Yes Depression? No Cancer? No More? No Past Surgical HX Previous Surgery?Y GALLBLADDER STOMACH TUMORS REMOVAL KIDNEY TUBE OPENINGS FINGER SURGERY D & C BREAST LUMP REMOVAL RIGHT KNEE MENISCUS HYSTERECTOMY BLADDER SURGERY Current home meds: Reported Medications Acetaminophen (Tylenol XS 500MG) 500 MG PO TID Enalapril Maleate 5 MG PO BID Atenolol 25 MG PO BID Warfarin Sodium (Warfarin 3MG) 3 MG PO DAILY #60 Simvastatin 10 MG PO DAILY #30 RANITIDINE HCL (Ranitidine HCl) 150 MG PO DAILY #30 Social Hx: Smoking HX Tobacco No Alcohol Alcohol: No Hx of Drug Use Drug Use? No Patient's support system is good Review of systems: Constitutional weakness. No: diaphoresis, fever. Eyes No: no symptoms reported. Ears, Nose, Mouth, Throat No no symptoms reported Respiratory No: no symptoms reported. Cardiovascular No no symptoms reported Gastrointestinal/Abdominal No no symptoms reported Genitourinary see HPI. Musculoskeletal see HPI. Skin No: no symptoms reported. Neurological No: no symptoms reported. Psychiatric No: no symptoms reported. Exam: Lab data for last 24 hours: Laboratory Tests 12/28/16 1250: Sodium 130 L, Potassium 3.8, Chloride 95 L, Carbon Dioxide 29, BUN 15, Creatinine 0.8, Estimated Creat Clear 52, Estimated GFR (MDRD) 68, Glucose 110 H, Calcium 9.5, Total Bilirubin 0.6, AST 23, ALT 25, Alkaline Phosphatase 89, Creatine Kinase 157, CK-MB (CK-2) Rel Index 1.1, CK and CKMB Interp 1.8, Troponin I < 0.02, Total Protein 8.0, Albumin 3.9, Globulin 4.1 H, Albumin/ Globulin Ratio 1.0 L, WBC 7.8, RBC 4.64, Hgb 13.5, Hct 41.2, MCV 88.7, RDW 12.6 , Plt Count 325, MPV 6.1 L, Gran % 56.2, Gran # 4.4, Lymphocytes % 36.2, Monocytes % 7.1, Eosinophils % 0.4, Basophils % 0.2, Lymphocytes # 2.8, Monocytes # 0.6, Eosinophils # 0.0, Basophils # 0.0, PUBS MCHC 32.8, MCH 29.1 12/28/16 1130: Urine Color YELLOW, Urine Appearance CLOUDY, Urine pH 8.0, Ur Specific [place] 1.010, Urine Protein TRACE H, Urine Ketones NEGATIVE, Urine Blood 1+ H, Urine Nitrate NEGATIVE, Urine Bilirubin NEGATIVE, Urine Urobilinogen 0.2, Ur Leukocyte Esterase 1+ H, Urine RBC 3-5, Urine WBC 5-10, Ur Squamous Epith Cells 3-5, Amorphous Sediment 1+, Urine Bacteria 4+, Hyaline Casts 3-5, Urine Glucose NEGATIVE Microbiology 12/28 1130 URINE CC: Urine Culture - RECD Admission vital signs: 1ST Vital Signs Result Date Time Pulse Ox 98 12/28 1105 B/P 131/66 12/28 1105 Temp 97.0 12/28 1105 Pulse 62 12/28 1105 Resp 20 12/28 1105 O2 Delivery ROOM AIR 12/28 1523 Exam General appearance: normal appearance, alert, awake, no acute distress Eyes: anicteric ENT: mucous membranes moist Neck: normal inspection, non-tender, no JVD Cardiovascular: regular rate & rhythm, no peripheral edema, murmur Respiratory: clear to auscultation, normal breath sounds ABD: non-distended, normal bowel sounds, no rebound, soft, no tenderness Genitourinary: no dysuria, no hematuria Extremities: moves all Musculoskeletal: generalized weakness, Mild tenderness across thoracic spine with increased sensitivity at LS spine; Thoracic kyphosis Skin: dry, intact, normal color Neuro: alert, normal mood/affect, oriented, speech clear Plan: Problem List 1. Generalized weakness Assessment/Plan Overall deconditioning. Care management consult for LTC placement. 2. Urinary tract infection Assessment/Plan Urine culture pending. Continue LEvaquin 3. Lumbar compression fracture Assessment/Plan Will consider CT LS spine. 4. History of CVA (cerebrovascular accident) Assessment/Plan Repeat INR. Pharmacy to follow Plan: see above at 1635
[2016-12-28 19:42] VITALS: BP 97/41
[2016-12-28 20:15] VITALS: BP 97/41
[2016-12-29 04:30] VITALS: BP 111/67
[2016-12-29 07:16] VITALS: BP 113/69
[2016-12-29] MEDS ORDERED: ENALAPRIL MALEA10 MG PO (07:20)
[2016-12-29] MEDS ORDERED: AMLO5TAB PO ×2 (07:21→09:33)
[2016-12-29] MEDS ORDERED: DIAZEPAM5 M1 PO (07:22)
[2016-12-29] MEDS ORDERED: POTASSIUM40 MEQ/15 PO (07:23)
[2016-12-29] MEDS ORDERED: PRENATAL VITAMI1 TA9 PO (07:26)
[2016-12-29] MEDS ORDERED: GLYCOLAX17 GM/DOSE PO (07:27)
--- NOTE | 2016-12-29 07:29 | PHARMACY CLINIC NOTE ---
Patient Demographics Patient Demographics Admission date: 12/28/16 Date: 12/29/16 Time: 0729 Allergies Coded Allergies: Cephalosporins (12/28/16) Penicillins (12/28/16) Sulfa (Sulfonamide Antibiotics) (12/28/16) aspirin (12/28/16) cefaclor (12/28/16) clindamycin (12/28/16) metronidazole (12/28/16) HEIGHT- FT: 5 IN: 5.00 K.521 VTE General Information Labs: Laboratory Tests 12/29 12/28 0630 1250 Coagulation PT (9.4 - 11.8 SECONDS) 43.8 H 48.4 H INR (0.9 - 1.1) 4.09 H 4.52 H Hematology Hgb (12.2 - 16.2 g/dL) 13.5 Hct (37.0 - 47.0 %) 41.2 Plt Count (142 - 424 K/mm3) 325 Disclaimer The following section includes nursing documentation that has been pulled in for pharmacy review. Patient's VTE score: 5 Patient's VTE Risk: LOW RISK Clinical trial participant? No VTE prophylaxis [id number] VTE prophylaxis ordered? Yes Type of prophylaxis/treatment: DOMINGUEZ at 0729
--- NOTE | 2016-12-29 08:14 | ACUTE CARE PROGRESS NOTE (QUA) ---
Progress Notes Subjective Date 12/29/16 Time 0811 Note Patient had a good breakfast, is awake, does report lots of back pain when she moves around and twists. She has no problems swallowing, no issues with urine output but does report some dysuria. Lungs and anterior powell are clear, heart rate regular, abdomen soft, she has no extremity edema and is wearing compression stockings. Able to move her legs and arms but does have pain in her lower back with leg movement bilaterally. Objective Findings Last VS-Temp:98.0 B/P:113/69 Pulse:87 Resp:20 SaO2:95 ROOM AIR Last weight lbs:151 oz:1 K.521 Method:Bed Scales Assessment/Plan Problem List 1. Generalized weakness 2. Urinary tract infection Qualifiers: Urinary tract infection type: site unspecified Hematuria presence: with hematuria Qualified Code: N39.0 - Urinary tract infection, site not specified 3. Lumbar compression fracture Qualifiers: Encounter type: initial encounter Fracture type: closed Qualified Code: S32.000A - Wedge compression fracture of unspecified lumbar vertebra, initial encounter for closed fracture 4. History of CVA (cerebrovascular accident) Patient condition Stable Plan: continue current care, continue IV antibiotics. CT scan of thoracic and lumbar spine to evaluate acuteness of her fractures. PT evaluation. Patient probably would benefit from long-term care placement. restart low-dose beta katherni. Blood pressure has been well-controlled. INR over target. Hold warfarin at this point. This inpt stay is expected to cross 2 MNs from start of care Yes at 0813
[2016-12-29 10:58] VITALS: BP 113/69
--- NOTE | 2016-12-29 11:35 | RADIOLOGY REPORT PS360 ---
CT LUMBAR SPINE W/O CONTRAST CLINICAL INDICATION: Low back pain, compression fracture, COMPRESSION FRACTURE AND PAIN ORDERING PHYSICIAN: Warren Clark MD PATIENT AGE: 89 years COMPARISON: Radiograph of 12/26/2016 TECHNIQUE:Axial, sagittal, and coronal images are generated and reviewed without contrast FINDINGS: There is diffuse osteopenia of the generalized bony structures. T12-L1: Mild chronic wedging is present at T12 with loss of height anteriorly of approximately 40%. L1-L2: There are acute mild endplate compression changes involving both superior and inferior endplate of L2 with discontinuity noted along both the superior and inferior endplate of L2 centrally. There is loss of height centrally of approximately 50%. There is very minimal retropulsion of the posterior intrathoracic of L2. No canal stenosis apparent L2-L3: Central bulging disc with mild facet and ligamentum hypertrophy. L3-L4: 5 mm anterolisthesis of L3 on L4 with mild facet arthritic change and mild concentric bulging disc. L4-L5: 6 mm anterolisthesis of L4 on L5 with bulging disc along facet and ligamentum flavum hypertrophy with severe bilateral lateral recess and foraminal narrowing. The spondylolisthesis is nonspondylolytic L5-S1: Unremarkable. Incidental note is made of left-sided nephrolithiasis. IMPRESSION: 1. Abnormal CT of the lumbar spine as detailed a level above with chronic wedging at T12. 2. Acute mild superior and inferior endplate compression changes at L2. 3. Anterolisthesis of L3 on L4 and L4 on L5 with severe bilateral lateral recess and foraminal narrowing at L4-L5. 4. Left nephrolithiasis
--- NOTE | 2016-12-29 11:39 | RADIOLOGY REPORT PS360 ---
CT THORACIC SPINE W/O CONTRAST INDICATION: Thoracic pain, compression fracture, abnormal radiograph COMPRESSION FRACTURE AND PAIN ORDERING PHYSICIAN: Warren Clark MD PATIENT AGE: 89 years COMPARISON: None TECHNIQUE: Axial images are obtained without contrast. Sagittal and coronal reformatted images are reviewed as well. FINDINGS: There is diffuse osteopenia of the generalized bony structures. Mild chronic wedging is present at T12. There is ankylosis of the thoracic spine. No acute thoracic spine fracture evident. Normal alignment. Incidental note made of a 4 mm noncalcified right upper lobe nodule. IMPRESSION: 1. No acute finding. 2. 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 3. Chronic wedge compression changes of T12 with loss of height anteriorly of approximately 40% unchanged from previous lateral chest radiograph.
[2016-12-29 16:00] VITALS: BP 122/44
[2016-12-29 19:46] VITALS: BP 122/62
[2016-12-29 21:00] VITALS: BP 122/62
[2016-12-30 04:49] VITALS: BP 87/57
[2016-12-30 06:55] LABS: LYMPH # 2.9 K/mm3 (0.7-4.5); LYMPH % 37.2 % (10-50.0)
[2016-12-30] MEDS ORDERED: LEVAQUIN500 MG PO (07:26)
[2016-12-30] MEDS ORDERED: DIAZEPAM5 M1 PO (07:26)
[2016-12-30] MEDS ORDERED: TYLENOL WITH CO1 TA1 PO (07:26)
--- NOTE | 2016-12-30 07:28 | ACUTE CARE PROGRESS NOTE (QUA) ---
Progress Notes Subjective Date 12/30/16 Time 0727 Note Overall patient feeling better. Tolerating by mouth food and fluids well. Continues to have some mild back pain. Otherwise doing well. Lungs are clear, heart rate regular, abdomen soft. Objective Findings Last VS-Temp:97.7 B/P:87/57 Pulse:63 Resp:20 SaO2:96 ROOM AIR Last weight lbs:151 oz:1 K.521 Method:Bed Scales Assessment/Plan Problem List 1. Generalized weakness 2. Urinary tract infection Qualifiers: Urinary tract infection type: site unspecified Hematuria presence: with hematuria Qualified Code: N39.0 - Urinary tract infection, site not specified 3. Lumbar compression fracture Qualifiers: Encounter type: initial encounter Fracture type: closed Qualified Code: S32.000A - Wedge compression fracture of unspecified lumbar vertebra, initial encounter for closed fracture 4. History of CVA (cerebrovascular accident) Patient condition Improving Plan: continue current care, initiate discharge plan This inpt stay is expected to cross 2 MNs from start of care Yes Antibiotic Stewardship (2) Current Culture Results Microbiology 12/28 1130 URINE CC: Urine Culture - COMP KLEBSIELLA PNEUMONIAE Infxn that will respond? Yes Right drug,dose,and route? Yes More targeted antbx? No How long atbx needed? 7 at 0795
--- NOTE | 2016-12-30 07:30 | DISCHARGE SUMMARY STANDARD ---
Demographics Admit date: 12/28/16 Discharge date: 12/30/16 History of present illness History of present illness 89 year old white female with a history of CVA for which she takes Coumadin and CAD presented to the ED with weakness and back pain. Patient reports increase in chronic back pain over the last 2-3 weeks. She was unable to get from chair to standing position. She lives alone with assistance of her grandson who checks on her frequently. Grandson reports malodorous urine. Patient denies dysuria, hematuria or frequency. No fevers. No cough, congestion or other ENT symptoms. No recent falls or injuries. Outpatient x-rays of LS from 12/26 shows old compression fracture T12 with concave deformity of inferior endplate of L2 c /w mild compression, age indeterminate. INR at that time was 3.5. In the ED, UA was positive for leuk estrace and blood, color cloudy. CBC, CMP and cardiac enzymes were unremarkable. Patient admitted to acute care for further evaluation and likely need for LTC placement. Patient's son lives in [place] and plans to come into town tomorrow to further discuss need for LTC. Hospital Course Hospital Course: Patient was admitted, urine culture was finished, found to be a Klebsiella urinary tract infection, sensitive to by mouth agents including levofloxacin. She was found to be over anticoagulated and her warfarin was held, this had occurred on admission. CT scanning showed evidence of acute lumbar compression fractures. She was treated with intravenous pain medications but did not really require this, PT evaluated her and felt that she would be suitable for skilled care rehabilitation. This morning she had met maximal medical improvement the hospital. She'll be transferred to the [facility] facility. She'll need PT and OT consultation. She'll be placed on Levaquin for another 7 days, she will be placed on medications as noted on the reconciliation form, her enalapril will be held because of relative normal blood pressure in the hospital on only low-dose amlodipine and her beta katherin. She'll also have her warfarin held because of the over anticoagulation and her current antibiotic therapy. She'll need a BMP and PT/INR early next week at the next lab opportunity. Continue her regular diet at this point. Follow will be per our correction service routine rounds. Please note she'll continue to maintain her DNR status. Discharge diagnoses Problem List 1. Generalized weakness 2. Urinary tract infection 3. Lumbar compression fracture 4. History of CVA (cerebrovascular accident) Medications Medications: Discharge meds are as noted. Follow up Follow up in office in: 4 DAYS with: Warren Clark MD at 0730
--- NOTE | 2016-12-30 07:30 | DISCHARGE SUMMARY STANDARD ---
Demographics Admit date: 12/28/16 Discharge date: 12/30/16 History of present illness History of present illness 89 year old white female with a history of CVA for which she takes Coumadin and CAD presented to the ED with weakness and back pain. Patient reports increase in chronic back pain over the last 2-3 weeks. She was unable to get from chair to standing position. She lives alone with assistance of her grandson who checks on her frequently. Grandson reports malodorous urine. Patient denies dysuria, hematuria or frequency. No fevers. No cough, congestion or other ENT symptoms. No recent falls or injuries. Outpatient x-rays of LS from 12/26 shows old compression fracture T12 with concave deformity of inferior endplate of L2 c /w mild compression, age indeterminate. INR at that time was 3.5. In the ED, UA was positive for leuk estrace and blood, color cloudy. CBC, CMP and cardiac enzymes were unremarkable. Patient admitted to acute care for further evaluation and likely need for LTC placement. Patient's son lives in [place] and plans to come into town tomorrow to further discuss need for LTC. Hospital Course Hospital Course: Patient was admitted, urine culture was finished, found to be a Klebsiella urinary tract infection, sensitive to by mouth agents including levofloxacin. She was found to be over anticoagulated and her warfarin was held, this had occurred on admission. CT scanning showed evidence of acute lumbar compression fractures. She was treated with intravenous pain medications but did not really require this, PT evaluated her and felt that she would be suitable for skilled care rehabilitation. This morning she had met maximal medical improvement the hospital. She'll be transferred to the [facility] [place] [facility] facility. She'll need PT and OT consultation. She'll be placed on Levaquin for another 7 days, she will be placed on medications as noted on the reconciliation form, her enalapril will be held because of relative normal blood pressure in the hospital on only low-dose amlodipine and her beta katherin. She'll also have her warfarin held because of the over anticoagulation and her current antibiotic therapy. She'll need a BMP and PT/INR early next week at the next lab opportunity. Continue her regular diet at this point. Follow will be per our custodial service routine rounds. Please note she'll continue to maintain her DNR status. Discharge diagnoses Problem List 1. Generalized weakness 2. Urinary tract infection 3. Lumbar compression fracture 4. History of CVA (cerebrovascular accident) Medications Medications: Discharge meds are as noted. Follow up Follow up in office in: 4 DAYS with: Warren Clark MD at 0730
[2016-12-30 07:41] VITALS: BP 107/75
[2016-12-30 08:26] VITALS: BP 107/75
[2016-12-30 10:30] VITALS: BP 107/75
== END 2016-12-30 10:45 ==
LOC: ER 10:54 → 2ND 14:17
PROVIDERS: Emergency Medicine; Internal Medicine Adolescent Medicine
DX: N39.0 Urinary tract infection, site not specified (principal); I10 Essential (primary) hypertension; Z86.73 Personal history of transient ischemic attack (TIA), and cerebral infarction without residual deficits; R53.1 Weakness; Z79.01 Long term (current) use of anticoagulants; B96.1 Klebsiella pneumoniae [K. pneumoniae] as the cause of diseases classified elsewhere; M48.56XA Collapsed vertebra, not elsewhere classified, lumbar region, initial encounter for fracture
CPT/HCPCS: G0378; G8978; G8979; G8980